=== PATIENT | female | born 1955 | race Caucasian/White ===

== ENCOUNTER → 2017-10-23 | Outpatient (CLI) | payer MEDICARE ==
--- NOTE | 2017-10-24 00:04 | MR ---
EXAMINATION TYPE: MR lumbar spine wo/w con DATE OF EXAM: 10/23/2017 COMPARISON: 04/01/2016 HISTORY: LBP, BLE radic, decreased mobility, recently getting worse, hx surgery x2 TECHNIQUE: Multiplanar, multisequence images of the lumbar spine were acquired utilizing 8.5 mL intravenous Gada vist gadolinium contrast. The lumbar vertebra have fairly normal alignment. There is metal artifact from posterior fusion surge ry at L3-4. There is no compression fracture. There is narrowing of disc spaces at L2-3 L3-4 L4-5. De tail at the L2-3 level is limited somewhat by metal artifact. There is small posterior disc herniatio n at L2-3. Spinal canal appears narrowed at L2 3 to 5 mm. There is no evidence of lumbar paraspinal m ass. The contrast images show no pathologic enhancement. IMPRESSION: Posterior fusion surgery. Spondylotic changes. There is a mild relative spinal stenosis at L2-3 that appears slightly worse than last exam. No fracture.
== END | disposition home or self-care (01) ==
LOC: RADMRIMAIN 17:31
PROVIDERS: ATTEND Psychiatry & Neurology Neurology
DX: M48.061 Spinal stenosis, lumbar region without neurogenic claudication (principal); M47.816 Spondylosis without myelopathy or radiculopathy, lumbar region; Z98.1 Arthrodesis status
CPT/HCPCS: 82565; 72158; 36415; A9581